=== PATIENT | female | born 1960 | race Caucasian/White ===

== ENCOUNTER 2016-06-16 12:45 | Emergency (ER) | payer OTHER, BC ==
[~2016-06-16] VITALS: Ht 165.1 cm; Wt 90.0 kg
[~2016-06-16 12:45] MED LIST: ALBU8.5H5 INH; AMLO5TAB4 PO; CALC500T99 PO; LEVO125T75 PO; LOSA1TAB29 PO; MAG355OR15 PO; OMEP40CA6 PO; PRED20TA PO; SITA1TAB7 PO
[2016-06-16 12:48] VITALS: Ht 165.1 cm; Wt 90.0 kg
[2016-06-16] MEDS ORDERED: IPRATROPIUM (NEB) 0.5 MG/2.5 ML AMP HHN ONE ×2 (14:30→16:00)
[2016-06-16] MEDS ORDERED: DEXAMETHASONE 10 MG/ML 1 ML INJ IM ONE (14:30)
[2016-06-16] MEDS ORDERED: ALBUTEROL 0.083% (NEB) 2.5 MG/3 ML AMP HHN ONE ×2 (14:30→16:00)
--- NOTE | 2016-06-16 14:59 | RADRPT ---
PROCEDURE: XR Chest. CLINICAL INDICATION: Cough. TECHNIQUE: Single frontal view. COMPARISON: 03/30. FINDINGS: The lungs are clear. The heart size is normal. Surgical clips are present in the neck. There is no pleural effusion. There is no pneumothorax. IMPRESSION: 1. Surgical clips in the neck. 2. Otherwise normal chest x-ray. RPTAT: QQ .Edu Harrington MD, MD Date Time Electronically viewed and signed by .Edu Harrington MD, on 06/16/2016 14:58 .R/
[2016-06-16] MEDS ORDERED: PRED20TA PO (15:40)
[2016-06-16] MEDS ORDERED: ALBU8.5H3 INH (15:40)
--- NOTE | 2016-06-16 16:16 | ERD ---
DATE OF SERVICE: 06/16/2016 HISTORY OF PRESENT ILLNESS: The patient is a 56-year-old female complaining of a cough x1 month. P atient states that she has taken antibiotics with no alleviation. She has a history of asthma. She states that the asthma seems to be exacerbated. She has had no fevers. She has been using her inh aler with no alleviation of symptoms. No leg swelling. No pleuritic chest pain, no hemoptysis, no cardiac history. MEDICAL HISTORY: Asthma, diabetes, hypertension, hypothyroid. ALLERGIES TO MEDICATIONS: DENIES. SURGICAL HISTORY: Oophorectomy. REVIEW OF SYSTEMS: A 12-point review of systems was done. Refer to HPI for positives, all other sy stems negative. PHYSICAL EXAMINATION VITAL SIGNS: Temperature is 98.1, pulse 87, blood pressure is 150/87, respiratory 18, O2 saturation 97% on room air. Pain intensity of 0/10. GENERAL: The patient is well-appearing, well-nourished, no acute distress. HEENT: Atraumatic. Conjunctivae are pink. Pupils equal, round, and reactive to light. There is no s cleral icterus. Tympanic membranes clear bilaterally. Oropharynx clear. No nystagmus or photophobia . CHEST: The patient has diffuse wheezing heard on auscultation. No retractions. No focal rhonchi. HEART: Regular rate and rhythm. No murmurs, clicks, rubs or gallops. No S3 or S4. ABDOMEN: Soft, nontender and nondistended. Good bowel sounds. No rebound or guarding. No gross humble tonitis. No gross organomegaly or masses. No Garcia sign or McBurney point tenderness. EXTREMITIES: There is no lower leg swelling. SKIN: There is no apparent rash or petechia. The skin is warm and dry. EMERGENCY ROOM COURSE: The patient had a 1-view chest x-ray done in the ER. Patient's chest x-ray showed surgical clips in the neck. Otherwise, normal chest x-ray. The patient was given a breathin g treatment of albuterol and Atrovent. Upon reevaluation, patient continued having wheezing and dec ided to order another 1 hour continuous breathing treatment of albuterol and Atrovent to help reliev e the patient's symptoms. DIAGNOSIS: Asthma exacerbation. MEDICAL DECISION MAKING: I have low suspicion for respiratory distress or hypoxia. The patient's o xygen saturation is 97% on room air and patient is not showing signs of respiratory distress. Patie nt will be discharged with steroids and strict ER precautions. I have a low suspicion for pneumonia , low suspicion for CHF exacerbation. Low suspicion for COPD. The patient's exam is indicative of asthma, low suspicion for PE. DISCHARGE: The patient is discharged stable. Patient is given prescription for prednisone, albuter ol and told to follow up with primary care within 1 to 2 days for reevaluation. Patient is told if symptoms progress or worsen to return to the ER. All other questions answered at time of discharge. Discharge summary given at the time of departure. Patient understood and complied with plan. Dictated By: MISSY GUNTER for JOSUÉ ABAD/MORIAH Conf#: [id number] DID#: [id number]
[2016-06-16 17:19] VITALS: BP 140/82; PULSE 77; RESP 18; TEMP 98.1
== END 2016-06-16 17:20 | disposition home or self-care (01) ==
LOC: FTE 12:45
DX: J45.901 Unspecified asthma with (acute) exacerbation (principal); E11.9 Type 2 diabetes mellitus without complications; I10 Essential (primary) hypertension; E03.9 Hypothyroidism, unspecified
CPT/HCPCS: 71010; 94640; 94664; 96372; 99284; J1100

== ENCOUNTER 2016-12-19 23:47 | Emergency (ER) | END 2016-12-20 02:57 | disposition home or self-care (01) | DX: A08.4 Viral intestinal infection, unspecified (principal); N30.00 Acute cystitis without hematuria; I10 Essential (primary) hypertension | CPT/HCPCS: 36415; 74176; 80053; 81001; 83690; 85025; 96374; 96375; 99285; J2270; J2405; J7030 ==

== ENCOUNTER 2017-05-13 16:23 | Emergency (ER) | END 2017-05-14 04:34 | disposition left against medical advice (07) ==

== ENCOUNTER 2017-05-25 12:59 | Emergency (ER) | END 2017-05-25 22:07 | disposition home or self-care (01) ==